=== PATIENT | male | born 1980 | race Caucasian/White ===

== ENCOUNTER 2023-11-26 08:57 | Outpatient (AMB) | payer OTHER, SELFPAY ==
--- NOTE | 2023-11-26 08:58 | AM.OFFWIN_ITS ---
Intake Vital Signs 11/26/23 08:59 Height 5 ft 11 in Weight 195 lb BMI 27.2 BP 116/80 Blood Pressure Location Rt brachial Position Sitting Pulse 53 Pulse Source Pulse Oximeter Temp 98.0 F Temp Source Oral Pulse Oximetry (%) 98 Oxygen Delivery Method Room Air Intake Visit Reasons: [employer] flu symptoms Intake Note: pt c/o flu like symptoms. Body aches, chills, fever, headache, sore throat, occasional cough. Started Saturday Patient Tobacco Use Status: Former Tobacco user Allergies No Known Allergies Allergy (Verified 11/26/23 08:58) Do you need a note to return to daycare/school/sports/work: No HPI [employer] flu symptoms HPI Details Patient presents for a sick visit. Reporting symptoms of sinus congestion, sore throat and difficulty swallowing. Low-grade fever. No family member is sick. No recent travel. Patient reports symptoms of malaise and fatigue. PFSH Social History Patient Tobacco Use Status: Former Tobacco user Physical Exam Vital Signs: Last Vital Signs Temp 98.0 F 11/26/23 08:59 Pulse 53 11/26/23 08:59 BP 116/80 11/26/23 08:59 Pulse Ox 98 11/26/23 08:59 Oxygen Delivery Method Room Air 11/26/23 08:59 BMI result Body Mass Index 27.2 Const General: cooperative and healthy appearing Nutritional Appearance: well nourished Orientation/consciousness: patient oriented x3 Limitations: no limitations HEENT Head: Yes normal to inspection Eyes General: appearance normal, both eyes and all related structures Neck Neck: Yes normal visual inspection Chest Chest palpation & inspection: normal palpation of entire chest wall Resp Effort & Inspection: normal respiratory effort Neuro General: patient oriented x3 Assessment & Plan Assessment & Plan (1) Upper respiratory tract infection: Code(s): J06.9 - Acute upper respiratory infection, unspecified Plan: Increase fluid intake. Tylenol for aches and pains. If symptoms worsen, follow-up here for a recheck. Will call with results of the COVID test. No antibiotics are needed. Coding Level of Care Code New Pt Level 3 ([id number]) Diagnoses Upper respiratory tract infection J06.9
[2023-11-26 08:59] VITALS: BP 116/80; PULSE 53; TEMP 36.7; O2SAT 98; BMI 27.2
== END 2023-11-26 09:33 | disposition home or self-care (01) ==
PROVIDERS: Visit Provider Internal Medicine
DX: J06.9 Acute upper respiratory infection, unspecified (principal)
CPT/HCPCS: 99203

== ENCOUNTER 2023-11-26 12:31 | Outpatient (REF) | payer OTHER, SELFPAY ==
[2023-11-26 14:06] LABS: Influenza A PCR NEGATIVE (Negative); Influenza B PCR NEGATIVE (Negative); Resp Syncy Virus RNA Qual PCR NEGATIVE (Negative); SARS COV2 PCR INHOUSE NEGATIVE (Negative)
== END 2023-11-26 12:32 | disposition home or self-care (01) ==
LOC: HO.LNP 12:31
PROVIDERS: Visit Provider Internal Medicine
DX: R09.89 Other specified symptoms and signs involving the circulatory and respiratory systems (principal)
CPT/HCPCS: 0241U